=== PATIENT | male | born 1985 | race African-American/Black ===

== ENCOUNTER 2016-12-07 19:25 | Emergency (ER) | payer OTHER ==
[~2016-12-07] VITALS: Ht 182.9 cm; Wt 110.5 kg
[2016-12-07 19:34] VITALS: BP 144/101; PULSE 65; RESP 18; TEMP 98.5; O2SAT 96
--- NOTE | 2016-12-07 19:54 | PD ---
HPI Chief Complaint: Oral / Dental Pain or Problem Time Seen by Provider: 19:40 Travel History International Travel<30 days: No Contact w/Intl Traveler<30days: No Traveled to known affect area: No History of Present Illness HPI This 31-year-old male says he had a bad headache this afternoon that lasted for several hours. During the headache is vision was quite blurred. He did not have any weakness or numbness. He has not had a headache like this before. He has been having some pain in his right last 4-5 weeks. At times the pain seems to spread to involve the entire head. The pain is aggravated by movement of the jaw. He is not on any medication. He does have anti-inflammatory medication that he takes for his shoulder at times appears not taken it for a couple of weeks. He is generally healthy. He has occasional clicking in the jaw PFSH Past Medical History Asthma: Yes (childhood- exercise induced ) Autoimmune Disease: No Cancer: No Cardiovascular Problems: No Diminished Hearing: No Endocrine: No Genitourinary: No Immune Disorder: No Musculoskeletal: Yes (LEFT SHOULDER DISLOCATION ) Neurologic: No Psychiatric: No Reproductive: No Respiratory: Yes Influenza Vaccination: Yes Past Surgical History Oral Surgery: Yes (mouth surgeries ) Other Surgery: Yes Social History Alcohol Use: No Tobacco Use: No Substance Use: No Allergies-Medications (Allergen,Severity, Reaction): Coded Allergies: Iodine (Verified Allergy, Severe, Swelling, 12/07/16) Shrimp (Verified Allergy, Mild, HIVES, 12/07/16) Reported Meds & Prescriptions Reported Meds & Active Scripts Active Reported [Anti-Inflammatory] [muscle relaxer] Review of Systems General / Constitutional: No: Fever, Chills Eyes: Positive: Blurred Vision HENT: Positive: Headaches Cardiovascular: No: Chest Pain or Discomfort, Palpitations Respiratory: No: Cough, Shortness of Breath Skin: No Rash, No Itching Neurologic: Positive: Headache, No: Weakness Psychiatric: No: Anxiety Physical Exam Narrative GENERAL: Well developed male SKIN: Focused skin assessment warm/dry. HEAD: Atraumatic. Normocephalic. EYES: Pupils equal and round. No scleral icterus. No injection or drainage. ENT: No nasal bleeding or discharge. Mucous membranes pink and moist. There is some tenderness of the right temporomandibular joint without discernible swelling NECK: Trachea midline. No JVD. CARDIOVASCULAR: Regular rate and rhythm. No murmur appreciated. RESPIRATORY: No accessory muscle use. Clear to auscultation. Breath sounds equal bilaterally. GASTROINTESTINAL: Abdomen soft, non-tender, nondistended. Hepatic and splenic margins not palpable. MUSCULOSKELETAL: No obvious deformities. No clubbing. No cyanosis. No edema. NEUROLOGICAL: Awake and alert. No obvious cranial nerve deficits. Motor grossly within normal limits. Normal speech. PSYCHIATRIC: Appropriate mood and affect; insight and judgment normal. Data Data Last Documented VS Vital Signs Date Time Temp Pulse Resp B/P Pulse Ox O2 Delivery O2 Flow Rate FiO2 12/07/16 19:34 98.5 65 18 144/[address] Brain W/O Iv Contrast(Rout) (12/07/16 19:51) Bedside Glucose YULIYA.AC&HS (12/07/16 19:55) MDM Medical Decision Making Medical Screen Exam Complete: Yes Emergency Medical Condition: Yes Medical Record Reviewed: Yes Differential Diagnosis Differential includes TMJ, headache, migraine headache, Narrative Course Accu-Chek blood sugar is 101. CT of the brain is negative. Suspect the patient has TMJ should follow up with one of the oral surgeons. Etiology for his headache this afternoon is not clear but the headache has resolved a CT scan Diagnosis Primary Impression: Headache Qualified Code: R51 - Acute nonintractable headache, unspecified headache type Additional Impression: TMJ (temporomandibular joint disorder) Disposition: 01 DISCHARGE HOME Condition: Stable Swapnil Snow MD Dec 07, 2016 19:54
[2016-12-07] MEDS ORDERED: muscle relaxer (19:58)
[2016-12-07] MEDS ORDERED: ANTI-INFLAMMATORY (19:58)
--- NOTE | 2016-12-07 20:20 | RADHPO ---
EXAM DATE/TIME: 12/07/2016 19:55 [facility] COMPARISON: No previous studies available for comparison. INDICATIONS : Cephalgia. Right jaw pain and blurred vision. RADIATION DOSE: 63.56 CTDIvol (mGy) MEDICAL HISTORY : Non-responsive. SURGICAL HISTORY : Left jaw ENCOUNTER: Initial ACUITY: 1 day PAIN SCALE: 7/10 LOCATION: Bilateral cranial TECHNIQUE: Multiple contiguous axial images were obtained of the head. Using automated exposure control and adj ustment of the mA and/or kV according to patient size, radiation dose was kept as low as reasonably a chievable to obtain optimal diagnostic quality images. FINDINGS: CEREBRUM: The ventricles are normal for age. No evidence of midline shift, mass lesion, hemorrhage or acute in farction. No extra-axial fluid collections are seen. POSTERIOR FOSSA: The cerebellum and brainstem are intact. The 4th ventricle is midline. The cerebellopontine angle i s unremarkable. EXTRACRANIAL: The visualized portion of the orbits is intact. SKULL: The calvaria is intact. No evidence of skull fracture. CONCLUSION: Normal examination. Samuel Sesay MD on December 07, 2016 at 20:18 Board Certified Radiologist. This report was verified electronically.
[2016-12-07 20:40] VITALS: BP 144/99
== END 2016-12-07 20:45 | disposition home or self-care (01) ==
LOC: PHED 19:25
DX: R51 Headache (principal); H53.8 Other visual disturbances; M26.609 Unspecified temporomandibular joint disorder, unspecified side
CPT/HCPCS: 70450